=== PATIENT | male | born 1965 | race American Indian/Alaskan Native ===

== ENCOUNTER 2017-07-05 08:06 | Emergency (ER) | payer MEDICAID ==
--- NOTE | 2017-07-05 08:34 | Emergency Department Report ---
ED CPR HPI - General Chief Complaint: Cardiac Arrest/CPR Stated Complaint: CARDIAC ARREST Time Seen by Provider: 07/05/17 08:11 Source: EMS - History of Present Illness MD Complaint: found unresponsive (EMS was called for an unresponsive 52 male with history of ) Bystander CPR Performed: Yes (Later his informed me that she tried CPR for 10 - 15 minutes until EMS) Number of Shocks Delivered: 3 Initial Findings in the Field: unresponsive, no respirations, no pulse ROSC in the Field: No Associated Injuries: No Associated Symptoms: chest pain, other (vomiting) Treatments Prior to Arrival: intubation, chest compressions, epinephrine mgs # ( 2), atropine mgs # (1) - Related Data Home Medications Medication Instructions Recorded Confirmed Last Taken Atazanavir Sulfate [Reyataz] 300 mg PO DAILY 11/29/13 11/29/13 Unknown Calcium Carbonate [Calcium] 500 mg PO DAILY 11/29/13 11/29/13 Unknown Gabapentin [Neurontin] 300 mg PO QHS 11/29/13 11/29/13 Unknown Ritonavir [Norvir] 100 mg PO DAILY 11/29/13 11/29/13 Unknown Sulfamethoxazole/Trimethoprim 1 tab PO DAILY 11/29/13 11/29/13 Unknown [Bactrim DS] Tamsulosin [Flomax] 0.4 mg PO DAILY 11/29/13 11/29/13 Unknown Tenofovir [Viread] 300 mg PO DAILY 11/29/13 11/29/13 Unknown Zidovudine 300 mg PO DAILY 11/29/13 11/29/13 Unknown Previous Rx's Medication Instructions Recorded Last Taken Type Amoxicillin/K Clav Tab [Augmentin 1 tab PO BID #14 tablet 11/29/13 Unknown Rx 875MG] Allergies Allergy/AdvReac Type Severity Reaction Status Date / Time No Known Allergies Allergy Verified 11/29/13 08:55 ED Review of Systems ROS: Stated complaint: CARDIAC ARREST Other details as noted in HPI Comment: Unobtainable due to pts medical conditions Constitutional: chills Eyes: denies: eye pain, eye discharge, vision change ENT: denies: ear pain, throat pain Respiratory: denies: cough, shortness of breath, wheezing Cardiovascular: denies: chest pain, palpitations Endocrine: no symptoms reported Gastrointestinal: denies: abdominal pain, nausea, diarrhea Genitourinary: denies: urgency, dysuria Musculoskeletal: denies: back pain, joint swelling, arthralgia Skin: denies: rash, lesions Neurological: denies: headache, weakness, paresthesias Psychiatric: denies: anxiety, depression Hematological/Lymphatic: denies: easy bleeding, easy bruising ED Past Medical Hx - Past Medical History Hx HIV: Yes - Social History Smoking Status: Current Every Day Smoker Substance Use Type: None - Medications Home Medications: Home Medications Medication Instructions Recorded Confirmed Last Taken Type Amoxicillin/K Clav Tab [Augmentin 1 tab PO BID #14 tablet 11/29/13 Unknown Rx 875MG] Atazanavir Sulfate [Reyataz] 300 mg PO DAILY 11/29/13 11/29/13 Unknown History Calcium Carbonate [Calcium] 500 mg PO DAILY 11/29/13 11/29/13 Unknown History Gabapentin [Neurontin] 300 mg PO QHS 11/29/13 11/29/13 Unknown History Ritonavir [Norvir] 100 mg PO DAILY 11/29/13 11/29/13 Unknown History Sulfamethoxazole/Trimethoprim 1 tab PO DAILY 11/29/13 11/29/13 Unknown History [Bactrim DS] Tamsulosin [Flomax] 0.4 mg PO DAILY 11/29/13 11/29/13 Unknown History Tenofovir [Viread] 300 mg PO DAILY 11/29/13 11/29/13 Unknown History Zidovudine 300 mg PO DAILY 11/29/13 11/29/13 Unknown History ED Physical Exam - General General appearance: other (unresponsive, intubated) - Head Head exam: Present: atraumatic - Eye Eye exam: Present: other (dilated fixed) - Cardiovascular Cardiovascular Exam: Present: other (pulseless) ED Course - Reevaluation(s) Reevaluation #1: 07/05/17 09:20 ACLS protocol applied. The patient was announced at 07:57 AM Critical care attestation.: If time is entered above; I have spent that time in minutes in the direct care of this critically ill patient, excluding procedure time. ED Disposition Clinical Impression: Cardiac arrest Disposition: DC-20 Is pt being admited?: No Does the pt Need Aspirin: No Condition: Stable Referrals: SUSAN VAZQUEZ MD [Primary Care Provider] - 3-5 Days
[2017-07-06] MEDS ORDERED: ADRENALIN ONE (11:33)
== END 2017-07-05 11:15 ==
LOC: ED 08:06
DX: I46.9 Cardiac arrest, cause unspecified (principal); F17.200 Nicotine dependence, unspecified, uncomplicated
CPT/HCPCS: J0171